=== PATIENT | male | born 1980 | race Caucasian/White ===

== ENCOUNTER 2021-05-14 11:20 | Emergency (ER) | payer BC ==
[2021-05-14] MEDS ORDERED: XYLOCAINE 1% HCL 20 ML MDV IJ ONE (11:21)
[2021-05-14 11:58] LABS: Appearance SLIGHTLY CLOUDY (CLEAR); Bilirubin NEGATIVE (NEGATIVE); Blood LARGE Ery/ul (0-5); Glucose NEGATIVE (NEGATIVE); Ketones NEGATIVE (NEGATIVE); Leukocyte Esterase NEGATIVE (NEGATIVE); Mucus SLIGHT /HPF (NEGATIVE); Nitrite NEGATIVE (NEGATIVE); Protein,Urine Dip 100 (Negative); RBC >101 /HPF (0-2); Specific Gravity 1.024 (1.005-1.025); Urobilinogen 2 mg/dL (0-1)
--- NOTE | 2021-05-14 12:00 | ERPHSYRPT ---
- History of Present Illness Time Seen by Provider: 05/14/21 11:53 Source: patient Exam Limitations: no limitations Patient Subjective Stated Complaint: Pt states "I woke up the most horrible pain in my groin and lower belly. It lyle when I pee and I have had a little trouble peeing today>" Triage Nursing Assessment: Pt presented alert and oriented X 3, skin wpd Pt ambulates with an upright steady gait, able to speak in clear full sentences. Pt in no apaprent respiratory distress. Physician History: 40 years old male presented in the ER with chief complaint of suprapubic dull aching pain moderate intensity upon waking up and intermittent afterwords with improvement prior to arrival and having pain with urination. Denies any hematuria. Some radiation to the groin area but denies any testicular swelling. Denies any urethral discharge or history of STD/multiple sex partners. Timing/Duration: today, resolved prior to arrival, improved Activites at Onset: sleep Quality: aching, burning Onset Location: suprapubic, groin Severity of Pain-Max: moderate Severity of Pain-Current: none Modifying Factors: Worsens With: urinating Associated Symptoms: nausea, dysuria Prior abdominal problems: none Allergies/Adverse Reactions: No Known Drug Allergies Allergy (Unverified 05/14/21 11:36) Home Medications: Albuterol 17 gm IH DAILY PRN 05/14/21 [History] Hx Tetanus, Diphtheria Vaccination/Date Given: No Hx Influenza Vaccination/Date Given: No Hx Pneumococcal Vaccination/Date Given: No Immunizations Up to Date: Yes Travel Risk - International Travel Have you traveled outside of the country in past 3 weeks: No - Coronavirus Screening Are you exhibiting any of the following symptoms?: No Close contact with a COVID-19 positive Pt in past 14-21 Days: No - Vaccine Status Have you recieved a Covid-19 vaccination: Yes [employer]: Moderna - Vaccination Dates Date of 2cond Vaccination (if applicable): 01/2021 - Past Medical History Pertinent Past Medical History: Yes Respiratory History: Asthma - Past Surgical History Past Surgical History: Yes Other Surgical History: cyst removed from thyroid - Social History Smoking Status: Never smoker Exposure to second hand smoke: No Drug Use: none Patient Lives Alone: No - Review of Systems Constitutional: No Symptoms Eyes: No Symptoms Ears, Nose, & Throat: No Symptoms Respiratory: No Symptoms Cardiac: No Symptoms Abdominal/Gastrointestinal: Abdominal Pain Genitourinary Symptoms: Dysuria Musculoskeletal: No Symptoms Skin: No Symptoms Neurological: No Symptoms Psychological: No Symptoms Endocrine: No Symptoms Hematologic/Lymphatic: No Symptoms Immunological/Allergic: No Symptoms - Nursing Vital Signs Nursing Vital Signs: Initial Vital Signs Temperature 96.3 F 05/14/21 11:31 Pulse Rate 76 05/14/21 11:31 Respiratory Rate 20 05/14/21 11:31 Blood Pressure 158/95 05/14/21 11:31 O2 Sat by Pulse Oximetry 98 05/14/21 11:31 Pain Scale Pain Intensity 7 - Physical Exam General Appearance: no apparent distress, alert Eye Exam: PERRL/EOMI Ears, Nose, Throat Exam: normal ENT inspection Neck Exam: normal inspection, full range of motion (None) Respiratory Exam: normal breath sounds, lungs clear (Amount) Cardiovascular Exam: regular rate/rhythm, normal heart sounds Gastrointestinal/Abdomen Exam: soft, normal bowel sounds, No tenderness, No distention, No guarding Back Exam: normal inspection, normal range of motion, No CVA tenderness Extremity Exam: normal inspection, normal range of motion Neurologic Exam: alert, oriented x 3, cooperative Skin Exam: normal color SpO2 Interpretation: normal SpO2: 98 O2 Delivery: Room Air Ordered Tests: Active Orders 24 hr Category Date Time Status CULTURE,URINE Stat Lab 05/14/21 11:36 Received UA W/RFX UR CULTURE Stat Lab 05/14/21 11:36 Completed Medication Summary Discontinued Medications Generic Name Dose Route Start Last Admin Trade Name Freq PRN Reason Stop Dose Admin Ceftriaxone Sodium 1,000 mg 05/14/21 12:10 Ceftriaxone Sodium 1000 Mg Inj Vial IM 05/14/21 12:11 STAT ONE Lab/Rad Data: Laboratory Results 05/14/21 Range/Units 11:36 Urine Color YELLOW (YELLOW) Urine Appearance SLIGHTLY CLOUDY (CLEAR) Urine pH 5.0 (5-6) Ur Specific Otis 1.024 (1.005-1.025) Urine Protein 100 (Negative) Urine Ketones NEGATIVE (NEGATIVE) Urine Blood LARGE (0-5) Adam/ul Urine Nitrite NEGATIVE (NEGATIVE) Urine Bilirubin NEGATIVE (NEGATIVE) Urine Urobilinogen 2 (0-1) mg/dL Ur Leukocyte Esterase NEGATIVE (NEGATIVE) Urine WBC (Auto) 6-10 (0-5) /HPF Urine RBC (Auto) >101 (0-2) /HPF U Hyaline Cast (Auto) 3-5 (0-2) /LPF U Epithel Cells (Auto) NONE (FEW) /HPF Urine Mucus (Auto) SLIGHT (NEGATIVE) /HPF Urine Culture Reflexed YES (NO) Urine Glucose NEGATIVE (NEGATIVE) mg/dL - Progress Progress: improved Progress Note: 05/14/21 12:12 Currently pain-free throughout her stay in the ER. Urinated without any problem in the ER. Does have UTI with hematuria. Could be possible a kidney stone which she already have passed now or having cystitis. Given a dose of Rocephin. No CVA tenderness, no abdominal tenderness at all. Do not think needs any other imaging or work-up and will put him on antibiotic and outpatient follow- up. Discussed signs symptoms of worsening needing return to ER which he seems understanding. Counseled pt/family regarding: lab results, diagnosis, need for follow-up - Departure Departure Disposition: Home Clinical Impression: UTI (urinary tract infection) Qualifiers: Urinary tract infection type: acute cystitis Hematuria presence: with hematuria Qualified Code(s): N30.01 - Acute cystitis with hematuria Condition: Stable Critical Care Time: No Referrals: DOCTOR,NO FAMILY [Primary Care Provider] - Follow up/PCP as directed MARYAM ROWE MD [ACTIVE STAFF] - Follow Up with PCP/3 days Instructions: Urinary Tract Infection, Adult (DC) Additional Instructions: Take Tylenol/ibuprofen as needed for pain. Follow-up with primary care for reevaluation. Return to ER for having suprapubic/abdominal pain/flank pain/blood in urine/fever chills/vomiting etc. Follow-up with primary care for reevaluation early next week. Prescriptions: Ciprofloxacin [Cipro 500 MG] 500 mg PO BID #14 tablet
[2021-05-14] MEDS ORDERED: Rocephin 1000 MG INJ IM ONE (12:10)
[2021-05-14] MEDS ORDERED: Rocephin 1000 MG INJ ONE (12:15)
[2021-05-14 12:27] VITALS: BP 135/83; PULSE 78; O2SAT 96
== END 2021-05-14 12:36 | disposition home or self-care (01) ==
LOC: ED 11:20
DX: N30.01 Acute cystitis with hematuria (principal); R10.30 Lower abdominal pain, unspecified
CPT/HCPCS: 81001; 87086; 96372; 99284; J0696